=== PATIENT | male | born 1965 | race Hispanic/Latino ===

== ENCOUNTER 2019-02-25 | Emergency (ER) | payer SELFPAY ==
[2019-02-25 14:13] LABS: HEMATOCRIT 35.3 % (39.0-50.0); HEMOGLOBIN 11.6 g/dl (14.0-18.0); IMMATURE GRANULOCYTES 0.2 % (0.0-5.0); MEAN CORPUSCULAR HGB 28.2 pG CALC (26.0-32.0); MEAN CORPUSCULAR HGB CONC 32.9 g/L CALC (32.0-36.0); NEUT# 5.38 thou/uL (1.82-7.42); RED BLOOD COUNT 4.11 mill/uL (4.70-6.10); RED CELL DISTRI WIDTH 14.6 % (11.5-15.5)
[2019-02-25 14:19] LABS: MEAN CELL VOLUME 85.9 fL CALC (80.0-100.0)
[2019-02-25 14:28] LABS: ALBUMIN 4.2 g/dL (3.2-5.0); ALKALINE PHOSPHATASE 105 u/l (38-126); ANION GAP 14 (6-22 (CALC)); BILIRUBIN, TOTAL 0.3 mg/dL (0.0-1.4); BUN 10 mg/dL (9-20); BUN/CREATININE RATIO 11 (12-20 (CALC)); CARBON DIOXIDE 23 mmol/l (22-30); CHLORIDE 105 mmol/l (95-108); CREATININE 0.9 mg/dL (0.7-1.3); ETHYL ALCOHOL 0 mg/dl (0-30); GFR > 60 ML/MIN (>=60 (CALC)); GFR FOR AFR.AMER. > 60 ML/MIN (>=60 (CALC)); SGOT/AST 50 u/l (17-59); SODIUM 138 mmol/l (137-146)
[2019-02-25 14:51] LABS: INTERNATIONAL NORMALIZED RATIO 1.1 RATIO (0.7-1.3); PROTHROMBIN TIME 11.1 SECONDS (9.0-12.5)
== END 2019-02-25 14:50 | DRG 159 ==
DX: S01.551A Open bite of lip, initial encounter (principal); S01.152A Open bite of left eyelid and periocular area, initial encounter; S03.2XXA Dislocation of tooth, initial encounter; F17.200 Nicotine dependence, unspecified, uncomplicated; W54.0XXA Bitten by dog, initial encounter; Y92.009 Unspecified place in unspecified non-institutional (private) residence as the place of occurrence of the external cause